=== PATIENT | female | born 1935 | race Caucasian/White ===

== ENCOUNTER → 2017-05-26 | Outpatient (CLI) | payer MEDICARE ==
[~2017-05-26] MED LIST: AMLO5TAB PO; BENICAR HCT 251 TAB PO; CHEWABLE ASPIRI81 MG PO; CRESTOR5 MG PO; MEDROL 4MG. DOSE4 MG PO; PRAVACHOL 40MG40 MG PO; PREMPRO 0.45 MG1 TAB PO; PROTONIX 40MG T40 MG PO; ULORIC40 MG PO; XALATAN 0.2.5 ML/BOT OP; ZITHROMAX Z PA250 MG PO
== END ==
LOC: RAD 14:33
DX: I10 Essential (primary) hypertension (principal)

== ENCOUNTER → 2017-06-02 | Outpatient (CLI) | payer MEDICARE ==
--- NOTE | 2017-06-02 19:01 | RADIOLOGY REPORT PS360 ---
PROCEDURE: 2-D M-mode and color Doppler study INDICATIONS FOR THE TEST: Chest pain X COPD Heart Murmur Tobacco Smoking Palpitations Fatigue Syncope Edema HypertensionXDiabetes Mellitus Rheumatic Fever SOB LEACH X Obesity HyperlipidemiaX Family History HD Additional History PATIENT INFORMATION HEIGHT: 62 WEIGHT:138 GENDER: Female B/P:160/84 2-D/M-MODE INTERPRETATION: 2-D MEASUREMENTS OBSERVED VALUES IN CMS Right Ventricular Dimension (RVDd) 1.9 Interventricular Septum (Thickness)(IVsd) .8 Left Ventricular Internal Dimensions(LVIDd) 4.8 Left Ventricular Posterior Wall (Thickness)(LVPWd) .8 Aortic Root 3.0 Aortic Cusp Separation 1.6 Left Atrial Dimensions (LAD) 3.2 2D 1. Left atrium is qualitatively mildly enlarged, left ventricle is normal size, there is mild qualitative concentric left ventricular hypertrophy, visually estimated ejection fraction 55% with no obvious regional wall motion abnormality. 2. The right atrium and right ventricle are normal size and contractility. 4. The aortic valve is minimally thickened and fibrosed. 5. The mitral and tricuspid valve leaflets are minimally thickened. 6. No significant pericardial effusion noted. 7. The pulmonic valve is poorly visualized. DOPPLER INTERROGATION: Doppler interrogation of the aortic, mitral and tricuspid valvular presence of mild mitral and tricuspid regurgitation, tricuspid regurgitant jet velocity is insufficient for calculation of the right ventricular systolic pressure, grade 1 diastolic dysfunction seen with tissue Doppler evidence of raised left atrial pressure. CONCLUSION: 1. Mildly enlarged left atrium, normal left ventricular size, mild qualitative concentric left ventricular hypertrophy, visually estimated ejection fraction 55% with no obvious regional wall motion abnormality, grade 1 diastolic dysfunction seen with tissue Doppler evidence of raised left atrial pressure. 2. Mild mitral and tricuspid regurgitation. 3. No significant pericardial effusion noted.
== END ==
LOC: RT 09:16
DX: I10 Essential (primary) hypertension (principal); R06.09 Other forms of dyspnea; R07.89 Other chest pain